=== PATIENT | female | born 1960 | race African-American/Black ===

== ENCOUNTER 2019-11-21 17:17 | Emergency (ER) | payer OTHER, SELFPAY ==
--- NOTE | ~2019-11-21 | CT_ITS ---
EXAMINATION: CT cervical spine wo con DATE: 11/21/2019 18:45 INDICATION: Neck pain and left arm tingling TECHNIQUE: Computed tomography (CT) of the cervical spine was performed without intravenous contrast. The dose-length product (DLP) was 423.87 mGy-cm. Automated exposure control and iterative reconstruc tion technique were employed. COMPARISON: None FINDINGS: There is no fracture. The vertebral body heights are normal. The odontoid is intact. There is reversal of the normal cervical lordosis. Severe loss of intervertebral disc space height is noted at C5-6 and C6-7. There is moderate loss of intervertebral disc space height at C4-5. There are 2 mm of retrolisthesis of C5 on C6. There is advanced uncovertebral joint osteoarthritis at C6-7. Mild to moderate facet osteoarthritis is seen throughout the cervical spine. There is a 3 mm nodule of the r ight upper lobe. IMPRESSION: 1. Moderate to severe cervical spondylosis without acute findings. 2. 3 mm nodule of the right lung apex. If the patient has no risk factors for malignancy, no further follow up is required. If there are risk factors for malignancy (i.e., history of smoking, asbestos or radiation exposure), consider followup CT in 12 months. Reviewed, dictated and finalized at location A. IMPRESSION: 1. Moderate to severe cervical spondylosis without acute findings. 2. 3 mm nodule of the right lung apex. If the patient has no risk factors for m alignancy, no further follow up is required. If there are risk factors for mal ignancy (i.e., history of smoking, asbestos or radiation exposure), consider fo llowup CT in 12 months.
--- NOTE | ~2019-11-21 | XR_ITS ---
EXAMINATION: XR shoulder LT min 2V INDICATION: Left shoulder pain TECHNIQUE: Four views of the left shoulder are submitted. COMPARISON: None FINDINGS: Normal alignment. No fracture. Glenohumeral and acromioclavicular joint spaces are normal. Soft tissues are unremarkable. IMPRESSION: No acute osseous abnormality. Reviewed, dictated and finalized at location A.
[2019-11-21 17:22] VITALS: BP 156/70; PULSE 84; RESP 20; TEMP 36.3; O2SAT 99
[2019-11-21] MEDS: KETOROLAC (*BKC) 60 MG/2 ML VIAL IM (18:55)
--- NOTE | 2019-11-21 20:01 | ED.EXTPRO ---
HPI - Extremity Problem General Chief complaint: Extremity Problem,Nontraumatic <EVELINE Mercado Last Filed: 11/21/19 20:24> Stated complaint: L SHOULDER PAIN <EVELINE Mercado Last Filed: 11/21/19 20:24> Time Seen by Provider: 11/21/19 17:37 <EVELINE Mercado Last Filed: 11/21/19 20:24> Source: patient <EVELINE Mercado Last Filed: 11/21/19 20:24> Mode of arrival: ambulatory <EVELINE Mercado Last Filed: 11/21/19 20:24> Limitations: no limitations <EVELINE Mercado Last Filed: 11/21/19 20:24> History of Present Illness HPI Narrative: This is a 59 year old female that presents to the ER for left shoulder pain x 3 weeks. Reports no known injury or trauma. Reports pain has worsened since onset. Reports it is constant, but is worse with certain movement. Reports intermittent tingling in the left arm. Denies fever, chest pain, shortness of breath, vomiting, numbness or weakness. <EVELINE Mercado Last Filed: 11/21/19 20:24> Related Data Home medications: Home Medications Medication Instructions Recorded Confirmed No Home Medications 11/21/19 11/21/19 <EVELINE Mercado Last Filed: 11/21/19 20:24> Allergies/Adverse reactions: Allergies Allergy/AdvReac Type Severity Reaction Status Date / Time No Known Allergies Allergy Verified 11/21/19 17:24 <EVELINE Mercado Last Filed: 11/21/19 20:24> Review of Systems Review of Systems: Narrative: CONSTITUTIONAL: Denies fever CARDIOVASCULAR: Denies chest pain RESPIRATORY: Denies dyspnea. MUSCULOSKELETAL: Reports joint pain, and myalgia. NEUROLOGIC: Denies numbness, or weakness. <EVELINE Mercado Last Filed: 11/21/19 20:24> All systems reviewed & are unremarkable except as noted in HPI and below <EVELINE Mercado Last Filed: 11/21/19 20:24> [facility] Social History Social History: Social History Smoking status: Never smoker Substance use: never Gender identity (if verbalized by the patient): Female <Annia Mcintosh PA-C - Last Filed: 11/21/19 20:24> Exam Narrative: Exam Narrative: GENERAL: Well-appearing, well-nourished, and in no acute distress. HEAD: Normocephalic, atraumatic. EYES: EOMI. NECK: Supple. No adenopathy or masses. No midline spinal tenderness CHEST: Clear to auscultation. No respiratory distress. No wheezes rales or rhonchi HEART: Regular rate and rhythm. No murmur heard. Normal peripheral pulses. EXTREMITIES: Normal range of motion. No edema or obvious deformity. Strength equal in bilateral upper extremities SKIN: Warm, dry, no rash. NEURO: No focal deficits. Alert and oriented x3. PSYCH: Normal mood and affect <Annia Mcintosh PA-C - Last Filed: 11/21/19 20:24> Course Vital Signs Vital signs: Vital Signs Temperature 97.3 F L 11/21/19 17:22 Pulse Rate 84 11/21/19 17:22 Respiratory Rate 20 11/21/19 17:22 Blood Pressure 156/70 H 11/21/19 17:22 Pulse Oximetry 99 11/21/19 17:22 Temperature 97.3 F L 11/21/19 17:22 Pulse Rate 84 11/21/19 17:22 Respiratory Rate 20 11/21/19 17:22 Blood Pressure 156/70 H 11/21/19 17:22 Pulse Oximetry 99 11/21/19 17:22 <EVELINE Mercado Last Filed: 11/21/19 20:24> Vital Signs Temperature 97.3 F L 11/21/19 17:22 Pulse Rate 84 11/21/19 17:22 Respiratory Rate 20 11/21/19 17:22 Blood Pressure 156/70 H 11/21/19 17:22 Pulse Oximetry 99 11/21/19 17:22 Temperature 97.3 F L 11/21/19 17:22 Pulse Rate 84 11/21/19 17:22 Respiratory Rate 20 11/21/19 17:22 Blood Pressure 156/70 H 11/21/19 17:22 Pulse Oximetry 99 11/21/19 17:22 <Melva Moran MD - Last Filed: 12/01/19 03:09> MDM - Extremity (Nontraumatic) MDM Narrative Medical decision making narrative: Patient presents the emergency department for left shoulder pain x3 weeks. No know
== END 2019-11-21 20:32 | disposition home or self-care (01) ==
PROVIDERS: Emergency Provider Emergency Medicine; PCP Family Medicine
DX: M25.512 Pain in left shoulder (principal); R91.1 Solitary pulmonary nodule; M47.812 Spondylosis without myelopathy or radiculopathy, cervical region
CPT/HCPCS: 72125; 73030; 96372; 99284; J1885